=== PATIENT | male | born 1950 | race Caucasian/White ===

== ENCOUNTER 2020-01-06 18:54 | Emergency (ER) | payer MEDICARE, OTHER ==
[2020-01-06] MEDS ORDERED: diltiaZEM 30 MG TABLET PO STA (19:15)
--- NOTE | 2020-01-06 19:20 | ED Physician Documentation ---
History of Present Illness - Stated complaint Stated Complaint: BLOOD PRESSURE - Chief complaint Chief Complaint: Cardiac - History obtained from History obtained from: Patient, Family - History of Present Illness Timing: Today Pain level max: 0 Pain level now: 0 - Additonal information Additional information: 69-year-old male presents to the emergency department stating that he took his blood pressure at home tonight and it was over 200 systolic. He came in for evaluation. Otherwise asymptomatic. He does have a history of atrial fibrillation. He took metoprolol at 5 PM. No chest pain. No shortness of breath. He was seen at [facility] in [place] last night and found to have an ischemic portion of his kidney thought to be secondary to a blood clot and was started on Eliquis. He has been taking this. No focal neurological deficits. No headache. Nothing makes it better or worse. He is on metoprolol 100 mg p.o. twice daily, has been on this for many years. Review of Systems Ten Systems: 10 systems reviewed and negative Constitutional: denies: Fever, Chills Ears: denies: Ear pain Nose: denies: Rhinorrhea / runny nose, Congestion GI: denies: Vomiting, Diarrhea Skin: denies: Rash Musculoskeletal: denies: Neck pain, Back pain Neurologic: denies: Focal weakness, Numbness, Confused, Altered mental status, Headache PD PAST MEDICAL HISTORY - Past Medical History Past Medical History: Yes Cardiovascular: Hypertension, Coronary artery disease, Atrial fibrillation - Past Surgical History Past Surgical History: Yes Cardiovascular: CABG - Present Medications Home Medications: Ambulatory Orders Medication Instructions Recorded Confirmed Apixaban [Eliquis] 01/06/20 Empagliflozin [Jardiance] 01/06/20 Insulin Glargine [Lantus Solostar] 01/06/20 Metformin HCl 01/06/20 Metoprolol Tartrate 01/06/20 Rosuvastatin Calcium 01/06/20 Sildenafil Citrate [Viagra] 01/06/20 - Allergies Allergies/Adverse Reactions: Allergies Allergy/AdvReac Type Severity Reaction Status Date / Time Penicillins Allergy Anaphylaxis Verified 01/06/20 18:57 latex AdvReac Rash Verified 01/06/20 18:57 - Living Situation Living Situation: reports: With family Living Arrangement: reports: At home - Social History Does the pt smoke?: No Does the pt drink ETOH?: Yes Does the pt have substance abuse?: No - Family History Family history: reports: Non contributory PD ED PE NORMAL - Vitals Vital signs reviewed: Yes - General General: Alert and oriented X 3, No acute distress, Well developed/nourished - HEENT HEENT: Atraumatic, PERRL, Moist mucous membranes - Neck Neck: Supple, no meningeal sign - Cardiac Cardiac: Other (Irregularly irregular, tachycardic) - Respiratory Respiratory: No respiratory distress, Clear bilaterally - Abdomen Abdomen: Soft, Non tender, Non distended - Derm Derm: Warm and dry - Extremities Extremities: No edema, No calf tenderness / cord - Neuro Neuro: Alert and oriented X 3 - Psych Psych: Normal mood, Normal affect Results - Vitals Vitals: Vital Signs - 24 hr 01/06/20 01/06/20 18:58 19:17 Temperature 36.8 C Heart Rate 116 H 114 H Respiratory 18 17 Rate Blood Pressure 145/111 H 165/111 H O2 Saturation 98 97 Oxygen O2 Source Room air PD MEDICAL DECISION MAKING - ED course Complexity details: reviewed results, re-evaluated patient, considered differential, d/w patient, d/w family ED course: Patient with asymptomatic hypertension. Blood pressure decreased on its own prior to coming to the emergency department. He does have intermittent rapid ventricular response with his atrial fibrillation on the monitor, therefore was given a dose of Cardizem. He was rate controlled in the emergency department. We will have him follow-up with his doctor for further adjustment of his blood pressure medication as needed. Patient will continue his current medications. Patient counseled regarding signs and symptoms for which I believe and urgent re-evaluation would be necessary. Patient with good understanding of and agreement to plan and is comfortable going home at this time This document was made in part using voice recognition software. While efforts are made to proofread this document, sound alike and grammatical errors may occur. Departure - Departure Disposition: 01 Home, Self Care Clinical Impression: Atrial fibrillation with RVR Hypertension Qualifiers: Hypertension type: unspecified Qualified Code(s): I10 - Essential (primary) hypertension Condition: Good Instructions: ED Afib, ED HTN Established Follow-Up: Delia Cummings ARNP [Primary Care Provider] - Within 1 week Comments: Continue your medications at home. Follow-up with your doctor within 1 week. They may want to adjust your medications, or potentially change you from metoprolol to a different medication such as diltiazem. Return if you worsen
[2020-01-06 19:51] VITALS: BP 152/90
== END 2020-01-06 19:50 | disposition home or self-care (01) ==
LOC: ED 18:54
DX: I10 Essential (primary) hypertension (principal); I48.91 Unspecified atrial fibrillation; Z79.01 Long term (current) use of anticoagulants; Z95.1 Presence of aortocoronary bypass graft; I25.10 Atherosclerotic heart disease of native coronary artery without angina pectoris
CPT/HCPCS: 99284; A9270

== ENCOUNTER 2020-11-12 10:31 | Outpatient (CLI) | payer MEDICARE, OTHER ==
--- NOTE | 2020-11-12 11:40 | Ultrasound Report ---
PROCEDURE: Duplex Ext Veins Left INDICATIONS: LEFT LOWER LEG SWELLING TECHNIQUE: Real-time imaging, as well as color and pulse Doppler interrogation, were performed of the lower extr emity deep veins from the inguinal ligament to the popliteal fossa. COMPARISON: None. FINDINGS: The deep veins are normally compressible, and free of intraluminal thrombus. Color and pu lse Doppler demonstrate normal phasic intraluminal flow. There is normal augmentation response to di stal compression maneuver. There is a 4.8 x 0.9 x 2.4 cm popliteal cyst. IMPRESSION: No evidence of the vein thrombosis involving the left lower extremity. Reviewed by: Georgia Graham MD, PhD on 11/12/2020 11:39 AM PDT Approved by: Georgia Graham MD, PhD on 11/12/2020 11:39 AM PDT Station ID: [id number]
== END 2020-11-12 10:32 | disposition home or self-care (01) ==
LOC: DI 10:31
PROVIDERS: ATTEND Physician Assistant Medical
DX: M71.22 Synovial cyst of popliteal space [Baker], left knee (principal)